=== PATIENT | female | born 1980 | race Caucasian/White ===

== ENCOUNTER 2018-10-04 00:34 | Day surgery (SDC) | payer OTHER ==
[~2018-10-04] VITALS: Ht 180.3 cm; Wt 83.9 kg
[~2018-10-04 00:34] MED LIST: BUPR-163 PO; ESCI10TA48 PO; FOLI0.4T56 PO; IBU600 PO; LANT TOP; LIDOCAINE 2% 200MG/10ML UROJET ONE; LOR5 PO; MEDROL DOSE PACK; NORG1TAB61 PO; PER PO; PRE10 PO; PREN1CAP PO
[2018-10-04] MEDS ORDERED: LEVOFLOXACIN/D5W 750 MG/150 ML 150 ML IVPB ONE (07:25)
[2018-10-04] MEDS ORDERED: metroNIDAZOLE* 500MG/100ML BAG 100 ML IVPB ONE (07:25)
[2018-10-04] MEDS ORDERED: DEXAMETHASONE SOD 4 MG/ML VIAL ONE (07:38)
[2018-10-04] MEDS ORDERED: PROPOFOL EMUL(*) 10MG/ML 20 ML 20 ML ONE (07:38)
[2018-10-04] MEDS ORDERED: fentaNYL CITR 100 MCG/2 ML AMP ONE ×2 (07:38→09:03)
[2018-10-04] MEDS ORDERED: ONDANSETRON 4 MG/2 ML VIAL ONE (07:38)
[2018-10-04] MEDS ORDERED: LIDOCAINE MPF 1% 5 ML VIAL ONE (07:38)
[2018-10-04] MEDS ORDERED: KETAMINE HCL 200 MG/20 ML MDV ONE (07:40)
[2018-10-04 08:09] VITALS: BP 122/85
[2018-10-04] MEDS ORDERED: MIDAZOLAM 2 MG/2 ML VIAL IVP PRN (08:20)
[2018-10-04] MEDS ORDERED: LIDOCAINE/SOD BICARB 8.4% SYR ID ONE (08:20)
[2018-10-04] MEDS ORDERED: NORMOSOL R SOLN(*) 1000 ML BAG 1,000 ML IV PRN (08:20)
[2018-10-04] MEDS ORDERED: FAMOTIDINE 20 MG TAB PO ONE (08:20)
[2018-10-04] MEDS ORDERED: SUGAMMADEX SOD 200 MG/2 ML SDV ONE (08:21)
[2018-10-04] MEDS ORDERED: HYDR-654 PO (10:06)
[2018-10-04] MEDS ORDERED: LIDO15SO2 TOP (10:07)
[2018-10-04] MEDS ORDERED: PROMETHAZINE 25 MG/ML 1 ML AMP ONE (10:08)
--- NOTE | 2018-10-04 10:10 | Short(Outpt) Discharge Summary ---
Discharge Summary Departure Discharge to: Home Discharge Instructions Home Meds Active Scripts Lidocaine HCl VISCOUS 2% (Lidocaine Viscous) 2 % Solution, 1 DOROTHY TOP Q4H PRN for PAIN, #1 TUBE 1 Refill Prov:STACIE CHAU 10/04/18 Hydrocodone Bit/Acetaminophen (NORCO 7.5-325 TABLET) 1 Each Tablet, 1 EACH PO Q4H PRN for PAIN, #30 TAB Prov:STACIE CHAU 10/04/18 Reported Medications Ibuprofen (Motrin) 600 Mg Tab, 600 MG PO Q6H, #50 TAB TAKE 1 TABLET BY MOUTH EVERY 6 HOURS NEEDED FOR PAIN. TAKE WITH FOOD. 11/01/11 Diet: Regular Activity: As Tolerated Special Instructions: sitz baths 15 minutes 3 times per day and prn take fiber and a stool softener while taking pain meds. take a laxative as needed. please call [facility] to make 2 wk follow up appt ([phone]) STACIE CHAU Oct 04, 2018 10:09
--- NOTE | 2018-10-04 10:16 | Post Operative Progress Note ---
Post Operative Progress Note Date: Oct 04, 2018 Time: 10:10 Surgeon: real chau md #[id number] Home Care Scheduler: none Anesthesia: gen, local dr. meier Pre-Op Diagnosis: hemorrhoids Post-Op Diagnosis: same Findings: hemorrhoids Procedure(s): eua hemorrhoidectomy Specimen Removed:(May be N/A): hemorrhoids Complications: none Fluids: iv crystalloid Estimated Blood Loss: minimal Date OP Note Dictated: Oct 04, 2018 Time OP Note Dictated: 10:11 STACIE CHAU Oct 04, 2018 10:16
[2018-10-04] MEDS ORDERED: APAP/HYDROCODONE 325/7.5 TAB ONE (10:44)
[2018-10-04 10:45] VITALS: BP 116/76
--- NOTE | 2018-10-04 10:45 | NUR ---
1045- PT REMAINED IN PACU SETTING BUT WAS IN PHASE 2 CHARTING, PT A/O X3, PT IS POLITE AND COOPERATIVE WITH CARES AND STAFF, PT REMAINED UNDER MY CARE TORIBIO GOER, PT ON 1LPM VIA NC, MAINTAINING SATS, RESPIRATIONS AND AIRWAY, ALL VSS 1100- SL IV, PT PUT GLASSES BACK ON 1105- ORTHOSTATIC VSS, SEE VS CHART FOR DETAILS 1108- PT AMBULATORY TO RESTROOM, STABLE GAIT NOTED 1115- PT BACK FROM RESTROOM, UNABLE TO VOID, EDUCATED PT TO RETURN TO ER IF UNABLE TO VOID BY 2230 TONIGHT, PT DENIED ANY BLOOD OR DRAINAGE FROM RECTUM, FRESH PAD AND MESH UNDERWEAR IN PLACE 1120- REVIEWED D/C INSTRUCTIONS WITH PT 1125- D/C IV WITH CATH INTACT, PRESSURE DRESSING APPLIED WITH GAUZE AND COBAND 1130- PT AMBULATORY TO [facility], ACCOMPANIED BY TORIBIO GORE AND CARLOS ALBERTOFRIENMaria G CULLEN
[2018-10-04 11:00] VITALS: BP 109/68
[2018-10-04 11:05] VITALS: BP 125/68
[2018-10-04 11:08] VITALS: BP 119/70
--- NOTE | 2018-10-04 16:00 | OPERATIVE REPORT 1 ---
EVENT DATE: October 04, 2018 SURGEON: Lewis Elias MD ANESTHESIOLOGIST: Ap Young MD ANESTHESIA: General and local. BUSINESS OBJECTS CONSULTANT: None. PREOPERATIVE DIAGNOSIS Hemorrhoids. POSTOPERATIVE DIAGNOSIS Hemorrhoids. PROCEDURES PERFORMED 1. Exam under anesthesia. 2. Hemorrhoidectomy. FLUIDS IV crystalloid. ESTIMATED BLOOD LOSS Minimal. SPECIMENS Hemorrhoids. COMPLICATIONS None. INDICATIONS This is a 37-year-old female with chronically bothersome hemorrhoids. She wishes to have them removed. Risks and benefits of the procedure were explained, and consent was signed. DESCRIPTION OF PROCEDURE Patient was taken to the operating room and placed in the supine position. General anesthesia was administered per anesthesia team. Patient was then placed in the lithotomy position. Her buttocks were taped for exposure. She was then prepped and draped in normal sterile fashion. Exam under anesthesia was performed. Internal and external hemorrhoids were identified. Hill- Mccarty retractor was used during the exam under anesthesia and the hemorrhoidectomy. I began on the left side. The hemorrhoidal tissue on the left was composed of internal and external hemorrhoids. An incision was made at the apex on the perianal skin. Dissection was performed with a hemostat to free the hemorrhoidal tissue from the internal sphincter. A Harmonic scalpel was used to remove the hemorrhoidal tissue. The same procedure was performed at the right posterior position. An incision was made at the apex. A hemostat was used to dissect the hemorrhoidal tissue free of the sphincter muscle, and the Harmonic scalpel was used to remove the hemorrhoidal tissue. The same was performed at the right anterior position, making an incision at the apex on the perianal skin, dissecting the hemorrhoidal tissue from the underlying internal sphincter muscle, and removing the hemorrhoidal tissue with the Harmonic scalpel. I dissected with the mosquito in the posterior position to free some more of the hemorrhoidal tissue from under the mucosa and perianal skin, leaving the skin intact and then removing this hemorrhoidal tissue with the Harmonic scalpel. When I was finished, there was adequate tissue bridging between the hemorrhoidectomy sites. Hemostasis was assured. Local analgesia was injected in the form of a block as well as at the hemorrhoidectomy sites. Lidocaine on a foam roll was placed in the anus. Appropriate dressings were placed. Patient tolerated the procedure well. There were no complications. [facility]
== END 2018-10-04 10:45 | disposition home or self-care (01) ==
LOC: OR 00:34
PROVIDERS: ATTEND Surgery
DX: K64.4 Residual hemorrhoidal skin tags (principal); K64.8 Other hemorrhoids
CPT/HCPCS: 46260; 81025; 88304; J1100; J2001; J2250; J2405; J2550; J2704; J3010; J3490